=== PATIENT | female | born 1965 | race Caucasian/White ===

== ENCOUNTER 2016-08-27 10:30 | Emergency (ER) | payer OTHER ==
[~2016-08-27] VITALS: Ht 165.1 cm; Wt 66.8 kg
[~2016-08-27 10:30] MED LIST: HYDR1TAB PO; PROP1TAB PO; TAM4 PO; lisinopril PO
[2016-08-27 10:31] VITALS: BP 130/90; PULSE 108; RESP 16; O2SAT 94
--- NOTE | 2016-08-27 10:45 | ED.REPORT ---
HPI-Chest Pain 40 and Over Date of Service Aug 27, 2016 ED Provider: Dr. Pradip Lagos M.D. A 50 year old female with a history of umbilical hernia, kidney stones, GERD and hypertension presents to the ED from Urgent Care with epigastric chest pain onset 0100 this morning while laying awake in bed. The pain subsided after an hour but returned more severely at 0600. It is constant and sharp in nature, similar to pain with previous kidney stones and dissimilar to previous GERD pain. Associated symptoms include nausea and shortness of breath. She denies vomiting or diaphoresis. The patient also reports increasing palpitations and dizzy spells over the last year. She has taken ASA x 4 today. The patient is asymptomatic in the ED. Nursing Notes Stated Complaint: CHEST PAIN Chief Complaint: Chest Pain Nursing Notes Reviewed: Yes Allergies: Coded Allergies: Morphine (Verified Allergy, Intermediate, itching / dizziness, 06/03/09) Scheduled ([lisinopril]) 10 MG PO AM Hydrocod/APAP-Expunged, Do Not Renew! (VICODIN 5/500-Expunged Drug, Do Not Renew ) 1 Udtab Tablet 1 UDTAB PO q4-6PRN Propoxyphene-N/Acetaminophen (Darvocet-N 100) 1 Ea Tab 1 EA PO PRN Tamsulosin-Expunged Drug, Do Not Renew! (Flomax-Expunged Drug, Do Not Renew!) 0.4 Mg Capsule 0.4 MG PO HS General Time Seen by MD: 10:45 Chief Complaint Chest pain Hx Obtained From: Patient Arrived By: Walk-in Sudden in Onset?: Yes Onset Occurred: 9 - 12 hours ago Symptom Duration: Since onset Location: : Epigastric Quality: Painful Severity: Current: No pain currently Severity: Maximum: Moderate Associated with: Reports: Nausea, Denies: Diaphoresis, Fever, Vomiting Pertinent Negative: Relieved by nothing Context Related History: Reports: GERD, Hypertension Recent Healthcare: Recent doctor visit Similar Sx Previous: Yes Risk Factors HEART Score HEART for MACE: Mod index of susp (1), Normal ECG (0), Age 45 - 65 (1), 1-2 CAD risk factors (1), < or = to NL troponin (0) HEART for MACE Score: 0-3 (low risk 0.9%-1.7%) Past Medical History Past Medical History Umbilical hernia Kidney stones GERD Hypertension Past Surgical History Lithotripsy Family History Father of CHF and diabetes. Brother has CHF. Smoking History Never Smoker Social History Other Social History: Good social support, Ambulatory Status Independent Review of Systems Constitutional: Denies: Fever Respiratory: Reports: Shortness of breath Cardiovascular: Reports: Chest pain (Epigastric), Palpitations GI: Reports: Nausea, Denies: Vomiting Skin: Denies Diaphoresis Neurologic: Reports: Dizziness Complete sys rev & neg: except as marked. Physical Exam Initial Vital Signs Vital Signs (First) Date Time Temp Pulse Resp B/P Pulse Ox O2 Delivery O2 Flow Rate FiO2 08/27/16 10:31 37.2 108 16 130/90 94 Room Air Initial VS: Reviewed Head / Eyes: Atraumatic, Normocephalic ENT: Conjunctiva normal, No scleral icterus Skin: Warm, Dry, No cyanosis Neurologic: Alert, Oriented, Nonfocal Psychiatric: Mood/affect normal, Behavior normal, Normal thought content General/Constitutional: Awake, Alert, No acute distress Respiratory / Chest: Breath sounds NL, Breath sounds = bilat, No respiratory distress Cardiovascular: Heart rate NL, Regular rhythm, Heart sounds NL Abdomen: Soft, Non-tender Palpable umbilical hernia Interpretation & Diagnostics Lab Results Interpretation Result Diagram: 08/27/16 1115 08/27/16 1115 Test 08/27/16 11:15 08/27/16 11:29 White Blood Count 11.5th/mm3 (3.8-10.1) Red Blood Count 5.10mil/mm3 (3.90-5.20) Hemoglobin 15.1g/dL (12.0-15.6) Hematocrit 44.4% (35.0-46.0) Mean Corpuscular Volume 87.1fL (81-100) Mean Corpuscular Hemoglobin 29.6pg (27.0-35.0) Mean Corpuscular Hemoglobin Concent 34.0% (32.0-37.0) Red Cell Distribution Width 14.1% (12.3-15.4) Platelet Count 275bil/L (150-400) Neutrophils (%) (Auto) 71.5% (40-74) Lymphocytes (%) (Auto) 18.8% (14-46) Monocytes (%) (Auto) 8.7% (4-12) Eosinophils (%) (Auto) 0.4% (0-5) Basophils (%) (Auto) 0.3% (0-3) Sodium Level 135mEq/L (134-144) Potassium Level 4.5mEq/L (3.5-5.2) Chloride Level 101mEq/L (97-108) Carbon Dioxide Level 19mmol/L (18-29) Blood Urea Nitrogen 12mg/dL (6-24) Creatinine 0.64mg/dL (0.57-1.00) Estimat Glomerular Filtration Rate 141mL/min (>59) Glucose Level 104mg/dL (60-99) Calcium Level 9.1mg/dL (8.5-10.1) Magnesium Level 1.9mg/dL (1.6-2.6) Total Bilirubin 0.2mg/dL (0.0-1.2) Aspartate Amino Transf (AST/SGOT) 69U/L (0-50) Alanine Aminotransferase (ALT/SGPT) 25U/L (0-32) Alkaline Phosphatase 58U/L (25-150) Troponin T < 0.010ug/L (0.0-0.011) Pro-B-Type Natriuretic Peptide 22.28pg/mL (0-249) Total Protein 7.4g/dL (6.4-8.4) Albumin 4.2g/dL (3.4-5.0) Hold Urine Received (Received) ECG Interpretation ECG Interpretation: Sinus rhythm rate 99 Probable left atrial enlargement Time: 10:46 Interpreted by: ED physician X-Ray Chest Interpretation Chest Xray Interpretation: IMPRESSION: No acute cardiopulmonary disease process. Dictated by: Willa Cyr MD, PhD on 08/27/2016 at 11:59 View: AP & lat Interpretation / Wet Read by: Interpret - Radiologist Re-Eval/Medical Decision Time of Eval: 12:18 Patient Status: Condition improved Re-Evaluation/Progress Note: Discussed with patient x-ray and lab results, diagnosis, and plan for discharge. Follow-up and return to the ER instructions given. Patient agrees with plan for care and all questions were addressed. Counseled Regarding: Diagnosis, Lab results, Need for follow-up, When/why to return to ED Discharge & Departure Primary Impression: Chest pain Chest pain type: unspecified Qualified Code: R07.9 - Chest pain, unspecified Disposition: Home Discharge Condition All VS Reviewed: Yes Condition: Stable Patient Instructions: Chest Pain (ED) Additional Instructions: There was no objective evidence of heart attack or other dangerous condition. However, he definitely need further evaluation to decide whether or not this represents a "heart attack on the edge" or some other dangerous condition. If the symptoms recur, take a big dose of antacid medicine like Maalox and Tylenol or ibuprofen. If the pain goes away promptly I think outpatient follow-up is still appropriate. However if the pain lasts for any significant amount of time sitting greater than 15 or 20 minutes, he should return to the emergency department for further evaluation. If you are not sure what to do just text me. Call today for follow-up appointment Tuesday or Tuesday of next week to formulate an outpatient workup plan with Dr. Marrero. Take an aspirin daily until instructed to do otherwise. Referrals: Raymon Marrero MD (PCP) Scribe Attestation Portions of this note were transcribed by Kimberly Sánchez. I, Dr. Lagos, personally performed the history, physical exam, and medical decision-making; I reviewed and confirmed the accuracy of the information in the transcribed note. Signed by: Tramaine Wadsworth, 08/27/2016, 12:50 copies to: Raymon Marrero MD, Kirk H MD Aug 27, 2016 10:45 KIMBERLY SÁNCHEZ Aug 27, 2016 11:03
[2016-08-27 11:48] LABS: BASOPHILS % (AUTO) 0.3 % (0-3); EOSINOPHILS % (AUTO) 0.4 % (0-5); MONOCYTES % (AUTO) 8.7 % (4-12); Mean Corpuscular Hemoglobin 29.6 pg (27.0-35.0); Mean Corpuscular Volume 87.1 fL (81-100); NEUTROPHILS % (AUTO) 71.5 % (40-74); Platelet Count 275 bil/L (150-400)
--- NOTE | 2016-08-27 12:00 | DRSVH ---
PROCEDURE: X-RAY CHEST, TWO VIEWS ([id number]) INDICATIONS: Chest pain TECHNIQUE: 2 views of the chest were acquired. COMPARISON: None. FINDINGS: Surgical changes and devices: None. Lungs and pleura: No pleural effusions or pneumothorax. Lungs are clear. Mediastinum: Mediastinal contours are normal. Heart size is normal. Bones and chest wall: No suspicious bony abnormalities. Soft tissues appear unremarkable. IMPRESSION: No acute cardiopulmonary disease process. Dictated by: Willa Cyr MD, PhD on 08/27/2016 at 11:59 Approved by: Willa Cyr MD, PhD on 08/27/2016 at 11:59
[2016-08-27 12:10] LABS: Magnesium 1.9 mg/dL (1.6-2.6)
[2016-08-27 12:12] LABS: TROPONIN T < 0.010 ug/L (0.0-0.011)
[2016-08-27 12:35] VITALS: BP 122/79; PULSE 82; RESP 20; O2SAT 95
== END 2016-08-27 12:37 | disposition home or self-care (01) ==
LOC: SED 10:30
DX: R07.89 Other chest pain (principal); R11.0 Nausea; R06.02 Shortness of breath; R00.2 Palpitations; R42 Dizziness and giddiness; K21.9 Gastro-esophageal reflux disease without esophagitis; I10 Essential (primary) hypertension; Z88.5 Allergy status to narcotic agent